=== PATIENT | female | born 2000 | race African-American/Black ===

== ENCOUNTER 2021-07-10 17:25 | Emergency (ER) | payer OTHER ==
[~2021-07-10] VITALS: Ht 165.1 cm; Wt 45.0 kg
[2021-07-10 17:29] VITALS: BP 99/61
== END 2021-07-10 17:50 | disposition home or self-care (01) ==
LOC: ER 17:25
DX: S00.83XA Contusion of other part of head, initial encounter (principal); V49.49XA Driver injured in collision with other motor vehicles in traffic accident, initial encounter; Y93.89 Activity, other specified; Y92.89 Other specified places as the place of occurrence of the external cause; Y99.8 Other external cause status
CPT/HCPCS: 99281